=== PATIENT | male | born 1970 | race African-American/Black ===

== ENCOUNTER 2020-07-05 23:02 | Emergency (ER) | payer OTHER ==
[~2020-07-05] VITALS: Ht 167.6 cm; Wt 99.8 kg
[2020-07-06 01:34] VITALS: BP 168/98; TEMP 98.4
== END 2020-07-06 01:35 | disposition home or self-care (01) ==
LOC: ED 23:02
DX: K08.89 Other specified disorders of teeth and supporting structures (principal); Z79.2 Long term (current) use of antibiotics
CPT/HCPCS: 96372; 99283; J0696; J1885

== ENCOUNTER 2020-07-08 23:44 | Emergency (ER) | payer OTHER ==
[~2020-07-08] VITALS: Ht 167.6 cm; Wt 101.6 kg
[2020-07-09 01:02] VITALS: BP 133/85; TEMP 98.4
== END 2020-07-09 01:02 | disposition home or self-care (01) ==
LOC: ED 23:44
DX: K08.89 Other specified disorders of teeth and supporting structures (principal); K04.7 Periapical abscess without sinus
CPT/HCPCS: 96372; 99283; J1885

== ENCOUNTER 2020-08-30 19:32 | Emergency (ER) | payer OTHER ==
[~2020-08-30] VITALS: Ht 167.6 cm; Wt 101.6 kg
[2020-08-30 20:30] LABS: PLATELET COUNT 227 K/uL (142-355)
[2020-08-30 20:33] LABS: POTASSIUM 3.2 mmol/L (3.6-5.2); SODIUM 135 mmol/L (136-145)
[2020-08-30 21:53] VITALS: BP 146/89; TEMP 98.7
== END 2020-08-30 21:52 | disposition home or self-care (01) ==
LOC: ED 19:32
PROVIDERS: Family Medicine
DX: E11.65 Type 2 diabetes mellitus with hyperglycemia (principal); E87.6 Hypokalemia
CPT/HCPCS: 36415; 80053; 82550; 82948; 83036; 84484; 85027; 93005; 96360; 99284

== ENCOUNTER 2020-09-04 21:49 | Emergency (ER) | payer OTHER ==
[~2020-09-04] VITALS: Ht 167.6 cm; Wt 99.8 kg
[2020-09-04 22:30] LABS: PLATELET COUNT 227 K/uL (142-355)
[2020-09-04 22:51] LABS: POTASSIUM 3.5 mmol/L (3.6-5.2); SODIUM 134 mmol/L (136-145)
[2020-09-05 00:49] VITALS: BP 152/86; TEMP 97.8
== END 2020-09-05 00:49 | disposition home or self-care (01) ==
LOC: ED 21:49
PROVIDERS: Hospitalist
DX: R07.89 Other chest pain (principal); K21.9 Gastro-esophageal reflux disease without esophagitis; E11.65 Type 2 diabetes mellitus with hyperglycemia
CPT/HCPCS: 36415; 80053; 82550; 82948; 83880; 84484; 85027; 93005; 96360; 96361; 96374; 96375; 99284; J1815

== ENCOUNTER 2022-04-19 12:17 | Emergency (ER) | payer OTHER ==
[~2022-04-19] VITALS: Ht 167.6 cm; Wt 99.8 kg
[2022-04-19 12:20] VITALS: TEMP 98
[2022-04-19 13:20] VITALS: BP 140/72
== END 2022-04-19 13:23 | disposition home or self-care (01) ==
LOC: ED 12:17
DX: M24.812 Other specific joint derangements of left shoulder, not elsewhere classified (principal); V29.99XA Rider (driver) (passenger) of other motorcycle injured in unspecified traffic accident, initial encounter; Y92.89 Other specified places as the place of occurrence of the external cause
CPT/HCPCS: 99282